=== PATIENT | female | born 1955 | race Caucasian/White ===

== ENCOUNTER 2023-11-19 10:05 | Observation (INO) ==
[~2023-11-19 10:05] MED LIST: Lidocaine 2% PF 5 ML VIAL ONE; Midazolam 2 mg/2 ml VIAL 1 mg/ml 2 ml VIAL (2 mg) ONE; Naloxone 0.4 mg VIAL 0.4 mg/ml 1 ml VIAL IV PRN; Ondansetron 4 mg VIAL 2 MG/ML 2 ml VIAL ONE; fentaNYL 100 mcg/2 ml 50 MCG/ML VIAL ONE
[2023-11-19 10:45] LABS: Rapid COVID-19 Molecular Undetected (Undetected)
[2023-11-19] MEDS ORDERED: Naloxone 0.4 mg VIAL 0.4 mg/ml 1 ml VIAL IV PRN (11:02)
[2023-11-19] MEDS ORDERED: Metoclopramide 5 MG/ML VIAL (10 mg) IV PRN (11:02)
[2023-11-19] MEDS ORDERED: Ondansetron 4 mg VIAL 2 MG/ML 2 ml VIAL IV PRN ×2 (11:02→13:03)
[2023-11-19] MEDS ORDERED: fentaNYL 100 mcg/2 ml 50 MCG/ML VIAL IV PRN (11:02)
[2023-11-19] MEDS ORDERED: Scopolamine 1 mg/72hr PATCH ONE (11:03)
[2023-11-19] MEDS ORDERED: ROPIVACAINE 5 MG/ML 30 ML BTL (0.5%) ONE ×2 (11:20→11:59)
[2023-11-19] MEDS ORDERED: ceFAZolin 2 GM PREMIX 2 GM/50 ML BAG ONE (11:21)
[2023-11-19] MEDS: Lactated Ringers 1000 ml BAG 1,000 ML IV SCH ×3 (11:51→19:27)
[2023-11-19] MEDS: Scopolamine 1 mg/72hr PATCH TRANSDERM ONE (11:51)
[2023-11-19] MEDS ORDERED: Propofol 10 MG/ML 20 ML BTL ONE ×2 (11:55→13:10)
[2023-11-19] MEDS ORDERED: Dexmedetomidine 200 mcg/2 ml 2 ml VIAL (200 mcg) ONE (11:57)
[2023-11-19] MEDS ORDERED: Dexamethasone IV 4 MG/ML VIAL 1 ml VIAL ONE (11:59)
[2023-11-19] MEDS ORDERED: fentaNYL 100 mcg/2 ml 50 MCG/ML VIAL ONE ×5 (11:59→15:43)
[2023-11-19] MEDS ORDERED: NS 0.45% 1000 ml BAG 1,000 ML IV SCH (12:00)
[2023-11-19] MEDS ORDERED: Morphine 2 MG/ML SYRINGE IV PRN (13:03)
[2023-11-19] MEDS ORDERED: Lactulose 30 ml UDC PO PRN (13:03)
[2023-11-19] MEDS ORDERED: Magnesium Hydroxide LIQ 30 ML UDC PO PRN (13:03)
[2023-11-19] MEDS ORDERED: Ondansetron ODT 4 mg TAB 4 MG TAB PO PRN (13:03)
[2023-11-19] MEDS ORDERED: Labetalol IV 5 MG/ML 20 ml VIAL ONE (13:06)
[2023-11-19] MEDS: fentaNYL 100 mcg/2 ml 50 MCG/ML VIAL IV PRN (15:18)
[2023-11-19] MEDS: Acetaminophen IV 1 GM/100ML 1,000 MG/100 ML BAG IV ONE (19:26)
[2023-11-19] MEDS: Buffered Lidocaine 1% SYRIN 1 ml INTRADERM ONE ×2 (19:26)
[2023-11-19] MEDS: ceFAZolin 1 GM ADVAN 1 GM in NS 0.9% 50 ML 50 ML IVPB SCH (21:01)
[2023-11-19] MEDS: Magnesium Hydroxide LIQ 30 ML UDC PO SCH (21:04)
[2023-11-20 06:22] LABS: Hematocrit 37.4 % (35-45); Hemoglobin 12.8 g/dL (11.5-14.3); Mean Platelet Volume 7.7 fL (7.5-11.2); Platelet Count 203 10^3/uL (150-450)
[2023-11-20 06:38] LABS: Calcium 8.5 mg/dL (8.6-10.3); Creatinine, Serum 0.79 mg/dL (0.51-0.95); Potassium 4.3 mmol/L (3.5-5.0); eGFR CKD-EPI 81.9 (>60)
[2023-11-20] MEDS: Cholecalciferol (VIT D3) 1,000 unit TAB PO SCH (09:27)
[2023-11-20] MEDS: Vitamin THERAPEUTIC TAB PO SCH (09:30)
[2023-11-20 10:12] VITALS: BP 114/56
== END 2023-11-20 14:40 | disposition home or self-care (01) ==
LOC: AA 10:05 → INTOOBSV 10:05 → SSU 16:56
PROVIDERS: ADMIT Orthopaedic Surgery Adult Reconstructive Orthopaedic Surgery; ATTEND Orthopaedic Surgery Adult Reconstructive Orthopaedic Surgery